=== PATIENT | male | born 1960 | race African-American/Black ===

== ENCOUNTER 2018-05-02 13:42 | Inpatient (IN) | payer MEDICAID ==
[~2018-05-02] VITALS: Ht 182.9 cm; Wt 126.0 kg
[2018-05-02] MEDS ORDERED: METF-416 PO (13:48)
[2018-05-02] MEDS ORDERED: MORPHINE SULFATE 4 MG/ML CPJ (NOT FOR IM USE) IV STA (15:04)
[2018-05-02] MEDS ORDERED: ONDANSETRON HCL 4MG/2ML INJ IV STA (15:04)
[2018-05-02] MEDS ORDERED: FUROSEMIDE 40MG/4ML VIAL IV ONE (15:15)
[2018-05-02] MEDS ORDERED: PIPERACILLIN/TAZ 3.375G PREMIX 50 ML IV ONE (15:15)
[2018-05-02] MEDS ORDERED: NITROGLYCERIN OINT 1GM/INCH UDPKT TD ONE (15:15)
[2018-05-02] MEDS ORDERED: VANCOMYCIN 1 G PREMIX 200 ML IV SCH (15:15)
[2018-05-02] MEDS ORDERED: ASPIRIN 81MG TABLET PO ONE (15:15)
[2018-05-02 16:04] LABS: BASOPHILS % 0.3 % (0.0-2.0); EOSINOPHILS % 1.5 % (0.0-5.0); HEMATOCRIT. 32.8 % (42.0-52.0); HEMOGLOBIN. 11.6 g/dL (14.0-18.0); LYMPHOCYTES % 7.8 % (20.0-50.0); MEAN CORPUSCULAR HEMOGLOBIN 32.9 pg (28.0-32.0); MEAN CORPUSCULAR VOLUME 92.9 fL (80.0-94.0); MEAN PLATELET VOLUME 6.9 fl (7.4-10.4); MONOCYTES % 9.6 % (2.0-8.0); NEUTROPHILS % 80.8 % (40.0-76.0); PLATELET 291 x1000/uL (130-400); RED BLOOD CELL COUNT 3.53 mill/uL (4.7-6.1); RED CELL DISTRIBUTION WIDTH 13.4 % (11.6-14.6)
[2018-05-02 16:10] LABS: CHLORIDE 96 mEq/L (98-107); INR 1.1; PROTHROMBIN TIME 11.3 sec (9.1-11.1)
[2018-05-02 16:18] LABS: ETHANOL BLOOD 59 mg/dL
[2018-05-02 17:43] LABS: CLARITY URINE CLEAR (CLEAR); COLOR URINE YELLOW (YELLOW); KETONES URINE NEGATIVE (NEGATIVE); LEUKOCYTE ESTERASE URINE NEGATIVE (NEGATIVE); NITRITE URINE NEGATIVE (NEGATIVE); OCCULT BLOOD URINE NEGATIVE (NEGATIVE); PH URINE 5.5 (4.5-8.0); PROTEIN URINE 1+ (NEGATIVE); SPECIFIC GRAVITY URINE 1.009 (1.005-1.030); UROBILINOGEN URINE 0.2 E.U./dL (0.2-1.0)
[2018-05-02 18:07] LABS: *AMPHETAMINES SCREEN URINE NEGATIVE (NEGATIVE); *BARBITURATES SCREEN URINE NEGATIVE (NEGATIVE); *BENZODIAZEPINES SCREEN URINE NEGATIVE (NEGATIVE); *COCAINE SCREEN URINE PRESUMTIVE POSITIVE (NEGATIVE); CANNABINOID URINE SCREEN PRESUMTIVE POSITIVE (NEGATIVE); METHADONE URINE SCREEN NEGATIVE (NEGATIVE); OPIATES URINE SCREEN PRESUMTIVE POSITIVE (NEGATIVE); PHENCYCLIDINE URINE SCREEN PRESUMTIVE POSITIVE (NEGATIVE)
[2018-05-02] MEDS ORDERED: LORAZEPAM 2MG/ML CPJ IV PRN (18:30)
[2018-05-02] MEDS ORDERED: ENOXAPARIN 40MG/0.4ML SYR SUBCUT SCH (18:30)
[2018-05-02] MEDS ORDERED: MAGNESIUM/ALUMINUM HYDROXIDE/SIMETHICONE 30ML UDC PO PRN (18:30)
[2018-05-02] MEDS ORDERED: GUAIFENESIN 200MG/10ML SUGAR FREE UDC PO PRN (18:30)
[2018-05-02] MEDS ORDERED: IPRATROPIUM/ALBUTEROL 0.5-3(2.5)MG/3ML NEB INH PRN (18:30)
[2018-05-02] MEDS ORDERED: ONDANSETRON HCL 4MG/2ML INJ IV PRN (18:30)
[2018-05-02] MEDS ORDERED: DOCUSATE SODIUM 100MG CAPSULE PO PRN (18:30)
[2018-05-02 19:12] LABS: PHOSPHORUS 2.2 mg/dL (2.5-4.9)
[2018-05-02 19:54] LABS: HEPATITIS B SURFACE ANTIGEN NEGATIVE
[2018-05-02 20:24] LABS: HEPATITIS A AB IGM NEGATIVE (NEGATIVE)
[2018-05-02] MEDS: HYDROCODONE/ACETAMINOPHEN 5/325MG TABLET PO PRN (21:06)
[2018-05-02 23:08] VITALS: BP 160/78
[2018-05-02 23:38] LABS: CREATINE KINASE 108 IU/L (39-308); CREATINE KINASE MB FRACTION 1.4 ng/mL (0.5-3.6)
[2018-05-03] VITALS: BP 110/68
[2018-05-03 04:00] VITALS: BP 128/60
[2018-05-03] MEDS: VANCOMYCIN 1 G PREMIX 200 ML IV SCH ×3 (04:11→18:35)
[2018-05-03] MEDS: PIPERACILLIN/TAZ 3.375G PREMIX 50 ML IV SCH ×3 (04:12→21:26)
[2018-05-03] MEDS: CHLORDIAZEPOXIDE 25MG CAPSULE PO SCH ×4 (04:16→21:06)
[2018-05-03 08:00] VITALS: BP 128/60
[2018-05-03] MEDS: FUROSEMIDE 40MG/4ML VIAL IV SCH (09:58)
[2018-05-03] MEDS: ENOXAPARIN 30MG/0.3ML SYR SUBCUT SCH ×2 (09:59→21:16)
[2018-05-03] MEDS: THIAMINE HCL 100MG TABLET PO SCH (09:59)
[2018-05-03] MEDS: HYDROCODONE/ACETAMINOPHEN 5/325MG TABLET PO PRN ×2 (10:00→18:36)
[2018-05-03] MEDS: FOLIC ACID 1MG TABLET PO SCH (10:00)
[2018-05-03] MEDS: MULTIVITAMINS,THER W-MINERALS TABLET PO SCH (10:00)
[2018-05-03] MEDS: LISINOPRIL 10MG TABLET PO SCH (10:01)
[2018-05-03 10:18] LABS: BASOPHILS % 0.4 % (0.0-2.0); EOSINOPHILS % 2.7 % (0.0-5.0); HEMATOCRIT. 29.9 % (42.0-52.0); HEMOGLOBIN. 10.5 g/dL (14.0-18.0); LYMPHOCYTES % 12.7 % (20.0-50.0); MEAN CORPUSCULAR HEMOGLOBIN 32.5 pg (28.0-32.0); MEAN CORPUSCULAR VOLUME 92.4 fL (80.0-94.0); MEAN PLATELET VOLUME 7.3 fl (7.4-10.4); MONOCYTES % 9.5 % (2.0-8.0); NEUTROPHILS % 74.7 % (40.0-76.0); PLATELET 252 x1000/uL (130-400); RED BLOOD CELL COUNT 3.23 mill/uL (4.7-6.1); RED CELL DISTRIBUTION WIDTH 13.5 % (11.6-14.6)
[2018-05-03 10:23] LABS: CHLORIDE 100 mEq/L (98-107)
[2018-05-03 10:42] LABS: HDL CHOLESTEROL 35 mg/dL (40-59); LDL CHOLESTEROL 42 mg/dL (5-100)
[2018-05-03] MEDS ORDERED: GABA100C MT (10:58)
[2018-05-03 11:08] LABS: CREATINE KINASE 85 IU/L (39-308); CREATINE KINASE MB FRACTION < 1.0 ng/mL (0.5-3.6)
[2018-05-03 12:00] VITALS: BP 134/67
[2018-05-03] MEDS ORDERED: DEXTROSE 50% WATER 50ML SYRINGE IV PRN (13:30)
[2018-05-03] MEDS ORDERED: POTASSIUM CHLORIDE 20MEQ TABLET SR PO NR (13:30)
[2018-05-03] MEDS: ACETAMINOPHEN 325MG TABLET PO PRN (13:46)
[2018-05-03 16:00] VITALS: BP 117/66
[2018-05-03] MEDS: INSULIN LISPRO 100 UNITS/ML SUBCUT SCH ×2 (17:49→21:00)
[2018-05-03] MEDS: BLOOD SUGAR DIAGNOSTIC STRIP TEST SCH ×2 (17:49→21:04)
[2018-05-03 21:28] VITALS: BP 140/70
[2018-05-04] MEDS: VANCOMYCIN 1 G PREMIX 200 ML IV SCH ×2 (02:22→10:23)
[2018-05-04] MEDS: HYDROCODONE/ACETAMINOPHEN 5/325MG TABLET PO PRN ×4 (02:23→21:16)
[2018-05-04 04:00] VITALS: BP 130/57
[2018-05-04] MEDS: PIPERACILLIN/TAZ 3.375G PREMIX 50 ML IV SCH ×2 (05:22→14:28)
[2018-05-04] MEDS: BLOOD SUGAR DIAGNOSTIC STRIP TEST SCH ×4 (05:22→21:00)
[2018-05-04] MEDS: CHLORDIAZEPOXIDE 25MG CAPSULE PO SCH ×3 (05:22→21:08)
[2018-05-04 09:33] LABS: HEMATOCRIT. 30.4 % (42.0-52.0); HEMOGLOBIN. 10.4 g/dL (14.0-18.0); MEAN CORPUSCULAR HEMOGLOBIN 32.1 pg (28.0-32.0); MEAN CORPUSCULAR VOLUME 93.5 fL (80.0-94.0); MEAN PLATELET VOLUME 7.7 fl (7.4-10.4); NEUTROPHILS % 73.2 % (40.0-76.0); PLATELET 242 x1000/uL (130-400); RED BLOOD CELL COUNT 3.25 mill/uL (4.7-6.1); RED CELL DISTRIBUTION WIDTH 13.7 % (11.6-14.6)
[2018-05-04 09:34] LABS: BASOPHILS % 0.7 % (0.0-2.0); EOSINOPHILS % 3.1 % (0.0-5.0); LYMPHOCYTES % 13.3 % (20.0-50.0); MONOCYTES % 9.7 % (2.0-8.0)
[2018-05-04] MEDS: FUROSEMIDE 40MG/4ML VIAL IV SCH (10:21)
[2018-05-04] MEDS: LISINOPRIL 10MG TABLET PO SCH (10:22)
[2018-05-04] MEDS: FOLIC ACID 1MG TABLET PO SCH (10:22)
[2018-05-04] MEDS: ENOXAPARIN 30MG/0.3ML SYR SUBCUT SCH ×2 (10:22→21:08)
[2018-05-04] MEDS: MULTIVITAMINS,THER W-MINERALS TABLET PO SCH (10:22)
[2018-05-04] MEDS: THIAMINE HCL 100MG TABLET PO SCH (10:22)
[2018-05-04 10:42] LABS: CHLORIDE 100 mEq/L (98-107)
[2018-05-04] MEDS: INSULIN LISPRO 100 UNITS/ML SUBCUT SCH ×4 (10:51→21:00)
[2018-05-04 13:06] LABS: HIV SCREEN 4G Non Reactive (Non Reactive)
[2018-05-04] MEDS ORDERED: L25 PO (16:56)
[2018-05-04] MEDS ORDERED: LISI10TA5 PO (16:56)
[2018-05-04] MEDS ORDERED: THIA100T72 PO (16:56)
[2018-05-04 19:38] VITALS: BP 157/77
[2018-05-04] MEDS ORDERED: VANCOMYCIN 1500MG in DEXTROSE 5% WATER 250ML IV SCH (21:00)
[2018-05-04 23:49] VITALS: BP 126/58
[2018-05-05] MEDS: HYDROCODONE/ACETAMINOPHEN 5/325MG TABLET PO PRN ×3 (03:13→21:11)
[2018-05-05 04:00] VITALS: BP 125/73
[2018-05-05] MEDS: CHLORDIAZEPOXIDE 25MG CAPSULE PO SCH ×3 (05:36→21:18)
[2018-05-05 06:23] LABS: BASOPHILS % 0.7 % (0.0-2.0); EOSINOPHILS % 3.2 % (0.0-5.0); HEMATOCRIT. 32.6 % (42.0-52.0); HEMOGLOBIN. 11.2 g/dL (14.0-18.0); LYMPHOCYTES % 13.8 % (20.0-50.0); MEAN CORPUSCULAR VOLUME 93.1 fL (80.0-94.0); MEAN PLATELET VOLUME 7.4 fl (7.4-10.4); MONOCYTES % 8.1 % (2.0-8.0); NEUTROPHILS % 74.2 % (40.0-76.0); PLATELET 250 x1000/uL (130-400); RED CELL DISTRIBUTION WIDTH 13.8 % (11.6-14.6)
[2018-05-05 06:45] LABS: CHLORIDE 99 mEq/L (98-107)
[2018-05-05 08:00] VITALS: BP 143/75
[2018-05-05] MEDS: INSULIN LISPRO 100 UNITS/ML SUBCUT SCH ×4 (08:10→21:00)
[2018-05-05] MEDS: BLOOD SUGAR DIAGNOSTIC STRIP TEST SCH ×4 (08:17→21:00)
[2018-05-05 08:33] VITALS: BP 143/75
[2018-05-05] MEDS: FUROSEMIDE 40MG/4ML VIAL IV SCH (09:08)
[2018-05-05] MEDS: LISINOPRIL 10MG TABLET PO SCH (09:08)
[2018-05-05] MEDS: ENOXAPARIN 30MG/0.3ML SYR SUBCUT SCH ×2 (09:09→21:10)
[2018-05-05] MEDS: FOLIC ACID 1MG TABLET PO SCH (09:09)
[2018-05-05] MEDS: THIAMINE HCL 100MG TABLET PO SCH (09:09)
[2018-05-05] MEDS: MULTIVITAMINS,THER W-MINERALS TABLET PO SCH (09:09)
[2018-05-05 12:00] VITALS: BP 148/75
[2018-05-05 16:00] VITALS: BP 138/79
[2018-05-05 20:08] VITALS: BP 152/71
[2018-05-06 00:05] VITALS: BP 135/69
[2018-05-06 04:00] VITALS: BP 150/82
[2018-05-06] MEDS: BLOOD SUGAR DIAGNOSTIC STRIP TEST SCH ×4 (07:53→20:26)
[2018-05-06] MEDS: THIAMINE HCL 100MG TABLET PO SCH (07:53)
[2018-05-06] MEDS: INSULIN LISPRO 100 UNITS/ML SUBCUT SCH ×4 (07:53→20:26)
[2018-05-06] MEDS: CHLORDIAZEPOXIDE 25MG CAPSULE PO SCH ×3 (07:54→20:27)
[2018-05-06] MEDS: ENOXAPARIN 30MG/0.3ML SYR SUBCUT SCH ×2 (07:54→20:23)
[2018-05-06] MEDS: MULTIVITAMINS,THER W-MINERALS TABLET PO SCH (07:54)
[2018-05-06] MEDS: FOLIC ACID 1MG TABLET PO SCH (07:54)
[2018-05-06] MEDS: FUROSEMIDE 40MG/4ML VIAL IV SCH (07:57)
[2018-05-06] MEDS: LISINOPRIL 10MG TABLET PO SCH (07:57)
[2018-05-06 08:00] VITALS: BP 157/81
[2018-05-06 12:00] VITALS: BP 159/79
[2018-05-06 16:00] VITALS: BP 146/74
[2018-05-06] MEDS: HYDROCODONE/ACETAMINOPHEN 5/325MG TABLET PO PRN (16:36)
[2018-05-06 20:00] VITALS: BP 141/63
[2018-05-07 00:05] VITALS: BP 145/59
[2018-05-07 04:00] VITALS: BP 138/60
[2018-05-07] MEDS: CHLORDIAZEPOXIDE 25MG CAPSULE PO SCH ×5 (05:41→21:27)
[2018-05-07] MEDS: BLOOD SUGAR DIAGNOSTIC STRIP TEST SCH ×4 (07:40→21:15)
[2018-05-07 08:00] VITALS: BP 151/73
[2018-05-07] MEDS: FUROSEMIDE 40MG/4ML VIAL IV SCH (08:46)
[2018-05-07] MEDS: INSULIN LISPRO 100 UNITS/ML SUBCUT SCH ×4 (08:46→21:00)
[2018-05-07] MEDS: FOLIC ACID 1MG TABLET PO SCH (08:47)
[2018-05-07] MEDS: ENOXAPARIN 30MG/0.3ML SYR SUBCUT SCH ×2 (08:47→21:27)
[2018-05-07] MEDS: LISINOPRIL 10MG TABLET PO SCH (08:47)
[2018-05-07] MEDS: THIAMINE HCL 100MG TABLET PO SCH (08:48)
[2018-05-07] MEDS: MULTIVITAMINS,THER W-MINERALS TABLET PO SCH (08:48)
[2018-05-07 12:00] VITALS: BP 164/80
[2018-05-07 16:00] VITALS: BP 146/69
[2018-05-07 20:00] VITALS: BP 153/75
[2018-05-07] MEDS ORDERED: HYDROCODONE/ACETAMINOPHEN 5/325MG TABLET PO PRN (21:15)
[2018-05-08] VITALS: BP 138/69
[2018-05-08 04:00] VITALS: BP 135/68
[2018-05-08] MEDS: CHLORDIAZEPOXIDE 25MG CAPSULE PO SCH (05:13)
[2018-05-08] MEDS: BLOOD SUGAR DIAGNOSTIC STRIP TEST SCH ×3 (05:54→20:57)
[2018-05-08] MEDS: INSULIN LISPRO 100 UNITS/ML SUBCUT SCH ×3 (07:47→20:54)
[2018-05-08 07:55] LABS: BASOPHILS % 0.5 % (0.0-2.0); EOSINOPHILS % 3.1 % (0.0-5.0); HEMATOCRIT. 32.8 % (42.0-52.0); HEMOGLOBIN. 11.2 g/dL (14.0-18.0); LYMPHOCYTES % 13.6 % (20.0-50.0); MEAN CORPUSCULAR HEMOGLOBIN 31.6 pg (28.0-32.0); MEAN CORPUSCULAR VOLUME 92.8 fL (80.0-94.0); MEAN PLATELET VOLUME 7.7 fl (7.4-10.4); MONOCYTES % 8.8 % (2.0-8.0); PLATELET 259 x1000/uL (130-400); RED BLOOD CELL COUNT 3.54 mill/uL (4.7-6.1); RED CELL DISTRIBUTION WIDTH 13.6 % (11.6-14.6)
[2018-05-08 08:00] VITALS: BP 156/77
[2018-05-08 08:00] LABS: CHLORIDE 97 mEq/L (98-107)
[2018-05-08] MEDS: FUROSEMIDE 40MG/4ML VIAL IV SCH (09:00)
[2018-05-08] MEDS: THIAMINE HCL 100MG TABLET PO SCH (09:00)
[2018-05-08] MEDS: FOLIC ACID 1MG TABLET PO SCH (09:00)
[2018-05-08] MEDS: MULTIVITAMINS,THER W-MINERALS TABLET PO SCH (09:00)
[2018-05-08] MEDS: LISINOPRIL 10MG TABLET PO SCH (09:00)
[2018-05-08] MEDS: ENOXAPARIN 30MG/0.3ML SYR SUBCUT SCH ×2 (09:00→20:21)
[2018-05-08 12:00] VITALS: BP 146/71
[2018-05-08 12:32] LABS: TOTAL IRON BINDING CAPACITY 292 ug/dL (250-450)
[2018-05-08 12:57] LABS: FERRITIN 165 ng/mL (22-322); FOLIC ACID (FOLATE) SERUM >20 ng/mL ng/mL (>5.38)
[2018-05-08 13:09] LABS: VITAMIN B12 SERUM 504 pg/mL (211-911)
[2018-05-08 16:00] VITALS: BP 160/75
[2018-05-08 20:00] VITALS: BP 147/62
[2018-05-08] MEDS: ACETAMINOPHEN 325MG TABLET PO PRN (20:14)
[2018-05-08] MEDS: HYDROCODONE/ACETAMINOPHEN 5/325MG TABLET PO PRN (23:13)
[2018-05-09] VITALS (7 sets, daily range): BP systolic 125–159; BP diastolic 52–87
[2018-05-09 06:48] LABS: BASOPHILS % 0.4 % (0.0-2.0); EOSINOPHILS % 3.7 % (0.0-5.0); HEMATOCRIT. 30.2 % (42.0-52.0); HEMOGLOBIN. 10.5 g/dL (14.0-18.0); LYMPHOCYTES % 13.9 % (20.0-50.0); MEAN CORPUSCULAR HEMOGLOBIN 32.2 pg (28.0-32.0); MEAN CORPUSCULAR VOLUME 92.7 fL (80.0-94.0); MEAN PLATELET VOLUME 7.8 fl (7.4-10.4); MONOCYTES % 8.4 % (2.0-8.0); NEUTROPHILS % 73.6 % (40.0-76.0); PLATELET 248 x1000/uL (130-400); RED BLOOD CELL COUNT 3.26 mill/uL (4.7-6.1); RED CELL DISTRIBUTION WIDTH 13.6 % (11.6-14.6)
[2018-05-09 06:55] LABS: CHLORIDE 97 mEq/L (98-107)
[2018-05-09] MEDS: BLOOD SUGAR DIAGNOSTIC STRIP TEST SCH ×4 (07:40→21:00)
[2018-05-09] MEDS: INSULIN LISPRO 100 UNITS/ML SUBCUT SCH ×4 (07:41→21:10)
[2018-05-09] MEDS: LISINOPRIL 10MG TABLET PO SCH (10:25)
[2018-05-09] MEDS: FOLIC ACID 1MG TABLET PO SCH (10:25)
[2018-05-09] MEDS: CLONIDINE 0.1MG TABLET PO PRN (10:25)
[2018-05-09] MEDS: FUROSEMIDE 40MG/4ML VIAL IV SCH (10:25)
[2018-05-09] MEDS: ENOXAPARIN 30MG/0.3ML SYR SUBCUT SCH ×2 (10:25→21:05)
[2018-05-09] MEDS: MULTIVITAMINS,THER W-MINERALS TABLET PO SCH (10:26)
[2018-05-09] MEDS: THIAMINE HCL 100MG TABLET PO SCH (10:26)
[2018-05-09] MEDS: HYDROCODONE/ACETAMINOPHEN 5/325MG TABLET PO PRN (21:03)
[2018-05-10 00:56] VITALS: BP 140/70
[2018-05-10 04:00] VITALS: BP 133/68
[2018-05-10] MEDS: BLOOD SUGAR DIAGNOSTIC STRIP TEST SCH ×4 (06:56→21:12)
[2018-05-10 08:01] VITALS: BP 142/80
[2018-05-10] MEDS: INSULIN LISPRO 100 UNITS/ML SUBCUT SCH ×4 (08:10→21:00)
[2018-05-10] MEDS: FUROSEMIDE 40MG/4ML VIAL IV SCH (08:48)
[2018-05-10] MEDS: THIAMINE HCL 100MG TABLET PO SCH (08:49)
[2018-05-10] MEDS: ENOXAPARIN 30MG/0.3ML SYR SUBCUT SCH ×2 (08:49→21:12)
[2018-05-10] MEDS: MULTIVITAMINS,THER W-MINERALS TABLET PO SCH (08:49)
[2018-05-10] MEDS: FOLIC ACID 1MG TABLET PO SCH (08:49)
[2018-05-10] MEDS: LISINOPRIL 10MG TABLET PO SCH (08:49)
[2018-05-10] MEDS: HYDROCODONE/ACETAMINOPHEN 5/325MG TABLET PO PRN ×2 (08:50→21:14)
[2018-05-10 12:00] VITALS: BP 158/83
[2018-05-10 18:45] VITALS: BP 146/78
[2018-05-10 20:00] VITALS: BP 152/74
[2018-05-11] VITALS: BP 142/69
[2018-05-11 04:00] VITALS: BP 151/62
[2018-05-11] MEDS: BLOOD SUGAR DIAGNOSTIC STRIP TEST SCH ×4 (06:17→21:44)
[2018-05-11 07:30] VITALS: BP 143/72
[2018-05-11] MEDS: INSULIN LISPRO 100 UNITS/ML SUBCUT SCH ×4 (08:10→21:00)
[2018-05-11] MEDS: FUROSEMIDE 40MG/4ML VIAL IV SCH (08:59)
[2018-05-11] MEDS: THIAMINE HCL 100MG TABLET PO SCH (08:59)
[2018-05-11] MEDS: MULTIVITAMINS,THER W-MINERALS TABLET PO SCH (09:00)
[2018-05-11] MEDS: FOLIC ACID 1MG TABLET PO SCH (09:00)
[2018-05-11] MEDS: LISINOPRIL 10MG TABLET PO SCH (09:00)
[2018-05-11] MEDS: HYDROCODONE/ACETAMINOPHEN 5/325MG TABLET PO PRN ×2 (09:00→20:33)
[2018-05-11] MEDS: ENOXAPARIN 30MG/0.3ML SYR SUBCUT SCH ×2 (09:01→20:23)
[2018-05-11 12:00] VITALS: BP 134/83
[2018-05-11 15:30] VITALS: BP 138/68
[2018-05-11 20:00] VITALS: BP 149/74
[2018-05-12 00:01] VITALS: BP 144/71
[2018-05-12] MEDS: HYDROCODONE/ACETAMINOPHEN 5/325MG TABLET PO PRN ×4 (00:37→20:45)
[2018-05-12] MEDS: ACETAMINOPHEN 325MG TABLET PO PRN ×2 (01:58→06:56)
[2018-05-12 04:00] VITALS: BP 143/74
[2018-05-12] MEDS: BLOOD SUGAR DIAGNOSTIC STRIP TEST SCH ×4 (06:02→20:46)
[2018-05-12] MEDS: INSULIN LISPRO 100 UNITS/ML SUBCUT SCH ×4 (07:28→21:28)
[2018-05-12 08:00] VITALS: BP 151/77
[2018-05-12] MEDS: FUROSEMIDE 40MG/4ML VIAL IV SCH (08:52)
[2018-05-12] MEDS: MULTIVITAMINS,THER W-MINERALS TABLET PO SCH (08:52)
[2018-05-12] MEDS: THIAMINE HCL 100MG TABLET PO SCH (08:53)
[2018-05-12] MEDS: LISINOPRIL 10MG TABLET PO SCH (08:53)
[2018-05-12] MEDS: FOLIC ACID 1MG TABLET PO SCH (08:53)
[2018-05-12] MEDS: ENOXAPARIN 30MG/0.3ML SYR SUBCUT SCH ×2 (08:54→20:45)
[2018-05-12 12:00] VITALS: BP 143/75
[2018-05-12 16:00] VITALS: BP 147/70
[2018-05-12 20:00] VITALS: BP 159/73
[2018-05-13] VITALS: BP 163/82
[2018-05-13 04:00] VITALS: BP 166/85
[2018-05-13] MEDS: CLONIDINE 0.1MG TABLET PO PRN ×2 (06:45→20:55)
[2018-05-13] MEDS: BLOOD SUGAR DIAGNOSTIC STRIP TEST SCH ×3 (06:45→21:00)
[2018-05-13] MEDS: INSULIN LISPRO 100 UNITS/ML SUBCUT SCH ×3 (07:35→21:22)
[2018-05-13 08:00] VITALS: BP 148/74
[2018-05-13] MEDS: ENOXAPARIN 30MG/0.3ML SYR SUBCUT SCH ×2 (09:20→20:56)
[2018-05-13] MEDS: FUROSEMIDE 40MG/4ML VIAL IV SCH (09:20)
[2018-05-13] MEDS: LISINOPRIL 10MG TABLET PO SCH (09:21)
[2018-05-13] MEDS: THIAMINE HCL 100MG TABLET PO SCH (09:21)
[2018-05-13] MEDS: MULTIVITAMINS,THER W-MINERALS TABLET PO SCH (09:21)
[2018-05-13] MEDS: HYDROCODONE/ACETAMINOPHEN 5/325MG TABLET PO PRN ×3 (09:21→21:17)
[2018-05-13] MEDS: FOLIC ACID 1MG TABLET PO SCH (09:22)
[2018-05-13 12:00] VITALS: BP 130/68
[2018-05-13 16:00] VITALS: BP 144/72
[2018-05-13 20:00] VITALS: BP 163/81
[2018-05-14 00:09] VITALS: BP 160/83
[2018-05-14 04:00] VITALS: BP 163/70
[2018-05-14] MEDS: CLONIDINE 0.1MG TABLET PO PRN ×2 (06:13→20:38)
[2018-05-14] MEDS: BLOOD SUGAR DIAGNOSTIC STRIP TEST SCH ×4 (06:30→20:39)
[2018-05-14 08:00] VITALS: BP 143/80
[2018-05-14] MEDS: FUROSEMIDE 40MG/4ML VIAL IV SCH (08:55)
[2018-05-14] MEDS: LISINOPRIL 10MG TABLET PO SCH (08:55)
[2018-05-14] MEDS: MULTIVITAMINS,THER W-MINERALS TABLET PO SCH (08:55)
[2018-05-14] MEDS: FOLIC ACID 1MG TABLET PO SCH (08:55)
[2018-05-14] MEDS: THIAMINE HCL 100MG TABLET PO SCH (08:55)
[2018-05-14] MEDS: ENOXAPARIN 30MG/0.3ML SYR SUBCUT SCH ×2 (08:56→20:26)
[2018-05-14] MEDS: INSULIN LISPRO 100 UNITS/ML SUBCUT SCH ×4 (08:56→20:42)
[2018-05-14 12:00] VITALS: BP 117/69
[2018-05-14 16:00] VITALS: BP 153/81
[2018-05-14 20:00] VITALS: BP 164/75
[2018-05-14] MEDS: HYDROCODONE/ACETAMINOPHEN 5/325MG TABLET PO PRN (20:38)
[2018-05-15] VITALS: BP 145/80
[2018-05-15 04:00] VITALS: BP 147/76
[2018-05-15] MEDS: BLOOD SUGAR DIAGNOSTIC STRIP TEST SCH ×2 (06:52→12:40)
[2018-05-15 08:00] VITALS: BP 129/67
[2018-05-15] MEDS: INSULIN LISPRO 100 UNITS/ML SUBCUT SCH ×2 (08:10→14:13)
[2018-05-15] MEDS: ENOXAPARIN 30MG/0.3ML SYR SUBCUT SCH (08:37)
[2018-05-15] MEDS: THIAMINE HCL 100MG TABLET PO SCH (08:38)
[2018-05-15] MEDS: MULTIVITAMINS,THER W-MINERALS TABLET PO SCH (08:38)
[2018-05-15] MEDS: FOLIC ACID 1MG TABLET PO SCH (08:38)
[2018-05-15] MEDS: LISINOPRIL 10MG TABLET PO SCH (08:39)
[2018-05-15] MEDS: HYDROCODONE/ACETAMINOPHEN 5/325MG TABLET PO PRN (08:49)
[2018-05-15] MEDS ORDERED: FUROSEMIDE 40MG TABLET PO SCH (09:00)
[2018-05-15 12:00] VITALS: BP 151/70
[2018-05-15 14:57] VITALS: BP 129/67
== END 2018-05-15 16:00 | disposition home or self-care (01) | DRG 720 ==
LOC: ER 13:42 → 7WST 17:11 → EDBEDREQ 17:21 → ENRESERV 22:26
PROVIDERS: ADMIT Internal Medicine; ATTEND Internal Medicine
PROC: 0JBR0ZZ Excision of Left Foot Subcutaneous Tissue and Fascia, Open Approach (ICD-10-PCS; principal; 2018-05-03)
PROC: 0JBQ0ZZ Excision of Right Foot Subcutaneous Tissue and Fascia, Open Approach (ICD-10-PCS; 2018-05-03)
DX: A41.9 Sepsis, unspecified organism (principal); E43 Unspecified severe protein-calorie malnutrition; J84.9 Interstitial pulmonary disease, unspecified; E11.621 Type 2 diabetes mellitus with foot ulcer; E11.42 Type 2 diabetes mellitus with diabetic polyneuropathy; L03.119 Cellulitis of unspecified part of limb; J44.1 Chronic obstructive pulmonary disease with (acute) exacerbation; I50.9 Heart failure, unspecified; I11.0 Hypertensive heart disease with heart failure; G62.0 Drug-induced polyneuropathy; F10.10 Alcohol abuse, uncomplicated; E66.9 Obesity, unspecified; Z59.0 Homelessness; I45.10 Unspecified right bundle-branch block; I87.2 Venous insufficiency (chronic) (peripheral); L97.429 Non-pressure chronic ulcer of left heel and midfoot with unspecified severity; L97.419 Non-pressure chronic ulcer of right heel and midfoot with unspecified severity; F17.210 Nicotine dependence, cigarettes, uncomplicated; F12.10 Cannabis abuse, uncomplicated; F19.10 Other psychoactive substance abuse, uncomplicated; F14.10 Cocaine abuse, uncomplicated; I87.8 Other specified disorders of veins; Z79.84 Long term (current) use of oral hypoglycemic drugs; Z82.0 Family history of epilepsy and other diseases of the nervous system; Z91.19 Patient's noncompliance with other medical treatment and regimen; Z90.49 Acquired absence of other specified parts of digestive tract; Z84.1 Family history of disorders of kidney and ureter; Z68.37 Body mass index [BMI] 37.0-37.9, adult
CPT/HCPCS: 36415; 71045; 80048; 80061; 80202; 80305; 82550; 82553; 82607; 82728; 82746; 82962; 83540; 83550; 83605; 83735; 83880; 84100; 84443; 84484; 86705; 86709; 86803; 87340; 87389; 89055; 93005; 93306; 93970; 96365; 96366; 96367; 96375; 97162; 99285; A6261; G0482; J1650; J1815; J1940; J2270; J2405; J2543; J3370; J7060